=== PATIENT | male | born 1975 | race African-American/Black ===

== ENCOUNTER 2016-09-20 07:44 | Emergency (ER) | payer SELFPAY ==
[~2016-09-20] VITALS: Ht 170.2 cm; Wt 82.5 kg
[2016-09-20] MEDS ORDERED: NAPROXEN500 MG PO (08:02)
[2016-09-20] MEDS ORDERED: FLEXERIL10 MG PO (08:02)
[2016-09-20 08:30] VITALS: BP 135/81
== END 2016-09-20 08:31 | disposition home or self-care (01) ==
LOC: EME 07:44
DX: S39.012A Strain of muscle, fascia and tendon of lower back, initial encounter (principal); X50.9XXA Other and unspecified overexertion or strenuous movements or postures, initial encounter
CPT/HCPCS: 99281; 99283

== ENCOUNTER 2018-02-28 02:06 | Emergency (ER) | payer SELFPAY ==
[~2018-02-28] VITALS: Ht 170.2 cm; Wt 67.7 kg
[~2018-02-28 02:06] MED LIST: ALBUTEROL; CIPRO500 MG PO; FLEXERIL10 MG PO; NAPROXEN500 MG PO; NEXIUM40 MG PO
[2018-02-28 04:26] VITALS: BP 120/84
== END 2018-02-28 04:26 | disposition home or self-care (01) ==
LOC: EME 02:06
DX: S06.0X0A Concussion without loss of consciousness, initial encounter (principal); W22.8XXA Striking against or struck by other objects, initial encounter; Y99.0 Civilian activity done for income or pay; F17.200 Nicotine dependence, unspecified, uncomplicated
CPT/HCPCS: 70450; 99281; 99283